=== PATIENT | female | born 1985 | race Hispanic/Latino ===

== ENCOUNTER → 2022-12-29 | Outpatient (CLI) | payer OTHER ==
[~2022-12-29] MED LIST: IOHEXOL-350 50ML VIAL IV ONE
== END | disposition home or self-care (01) ==
LOC: RAH 09:41
PROVIDERS: ATTEND Obstetrics & Gynecology
DX: R79.89 Other specified abnormal findings of blood chemistry (principal); N97.9 Female infertility, unspecified
CPT/HCPCS: 74740; 58340; Q9967

== ENCOUNTER 2023-08-28 08:08 | Observation (INO) | payer OTHER ==
[~2023-08-28] VITALS: Ht 157.5 cm; Wt 100.7 kg
[2023-08-28 08:09] VITALS: BP 150/73; PULSE 78; RESP 18
== END 2023-08-28 09:33 | disposition home or self-care (01) ==
LOC: EDH 08:08 → LDH 08:41
PROVIDERS: ADMIT Obstetrics & Gynecology; ATTEND Obstetrics & Gynecology
DX: O36.8120 Decreased fetal movements, second trimester, not applicable or unspecified (principal); O24.419 Gestational diabetes mellitus in pregnancy, unspecified control; Z3A.20 20 weeks gestation of pregnancy
CPT/HCPCS: G0379; G0378